=== PATIENT | female | born 1995 | race American Indian/Alaskan Native ===

== ENCOUNTER 2017-01-08 12:03 | Emergency (ER) | payer MEDICAID ==
[2017-01-08 12:26] VITALS: BMI 26.6
[2017-01-08 12:27] VITALS: TEMP 98.9; O2SAT 98
[2017-01-08] MEDS ORDERED: Sodium Chloride 0.9% 1,000 ML IV STA (12:39)
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
[2017-01-08 13:46] VITALS: BP 132/75; PULSE 70; RESP 16
== END 2017-01-08 13:47 | disposition left against medical advice (07) ==
LOC: ED 12:03 → MERGE 12:03 → ED 13:47
DX: R51 Headache (principal)
CPT/HCPCS: 96361; 96374; 99285; J2765; J7040